=== PATIENT | female | born 1965 | race Caucasian/White ===

== ENCOUNTER 2021-08-23 12:33 | Emergency (ER) | payer SELFPAY ==
[~2021-08-23] VITALS: Ht 167.6 cm; Wt 61.7 kg
[2021-08-23 12:37] VITALS: BP 129/91
[2021-08-23] MEDS ORDERED: AMPICILLIN/SULBACTAM 3 GM in NACL 0.9% 100 ML IV ONE (12:55)
[2021-08-23] MEDS ORDERED: BACITRACIN OINT 500 UNITS/GM PKT TP ONE (12:55)
[2021-08-23] MEDS ORDERED: IBUP-2213 PO ×2 (12:57→13:08)
[2021-08-23] MEDS ORDERED: AMOX1TAB8 PO (12:57)
[2021-08-23] MEDS ORDERED: BACTO TP ×2 (12:57→13:08)
[2021-08-23] MEDS ORDERED: CLINDAMYCIN 600 MG in DEXTROSE 5% 50 ML IV ONE (13:00)
[2021-08-23] MEDS ORDERED: KETOROLAC 15 MG/ML VIAL IVP ONE (13:00)
[2021-08-23] MEDS ORDERED: SULF-59 PO ×2 (13:04→13:08)
[2021-08-23] MEDS ORDERED: CLIN-25 PO ×2 (13:04→13:08)
[2021-08-23] MEDS ORDERED: CLINDAMYCIN 600 MG/4 ML VIAL ONE (13:13)
[2021-08-23 14:15] VITALS: BP 127/77
--- NOTE | 2021-08-23 14:15 | NUR ---
Patient discharged with v/s stable. Written and verbal after care instructions given and explained with teachback. Patient alert, oriented and verbalized understanding of instructions. Ambulatory with steady gait. All questions addressed prior to discharge. ID band removed. Patient advised to follow up with PMD. Rx of Bacitracin/clindamycin/bactrim DS/mupirocin given. Patient educated on indication of medication including possible reaction and side effects. Opportunity to ask questions provided and answered.
== END 2021-08-23 14:15 | disposition home or self-care (01) ==
LOC: MED 12:33
DX: S51.802A Unspecified open wound of left forearm, initial encounter (principal); L03.114 Cellulitis of left upper limb; F17.210 Nicotine dependence, cigarettes, uncomplicated; Z88.0 Allergy status to penicillin; Z79.899 Other long term (current) drug therapy; Z98.84 Bariatric surgery status; W55.01XA Bitten by cat, initial encounter; Y93.89 Activity, other specified; Y92.89 Other specified places as the place of occurrence of the external cause; Y99.8 Other external cause status
CPT/HCPCS: 96365; 96375; 99284; J1885; J3490